=== PATIENT | male | born 1995 | race Two or more races ===

== ENCOUNTER 2020-03-15 12:56 | Emergency (ER) | payer BC ==
[2020-03-15] MEDS ORDERED: Ondansetron 4 MG/2 ML SDV IVPUSH ONE (13:16)
[2020-03-15] MEDS ORDERED: Sodium Chloride 0.9% 10 ML Syringe FLUSH PRN (13:17)
[2020-03-15] MEDS ORDERED: Sodium Chloride 0.9% 1,000 ML IV SCH (13:30)
[2020-03-15] MEDS ORDERED: Alum Hydrox/Mag Hydrox/Simeth 30 ML, Lidocaine 2% 15 ML PO ONE ×2 (13:34)
--- NOTE | 2020-03-15 13:37 | EDM.PDOC ---
ED HPI GENERAL MEDICAL PROBLEM - General Chief Complaint: Gastrointestinal Problem Stated Complaint: COUGH/VOMITING/CHILLS Time Seen by Provider: 03/15/20 13:11 Source of Information: Reports: Patient, RN Notes Reviewed History Limitations: Reports: No Limitations - History of Present Illness INITIAL COMMENTS - FREE TEXT/NARRATIVE: Patient is a 25-year-old male who presents to the ED for the evaluation of his cough/vomiting/chills. The patient notes that he has been sick since about Sunday. He notes that he woke up not feeling well. He had a slight cough, and then began having nausea and vomiting. He states he has been vomiting up to about 10 times per day. He is not really been able to keep anything down for food or fluids. He states he has not checked his temperature at home, but he has felt hot and cold. His pulse rate is 119 bpm, temperature is 97.2 F. Respiratory rate of 24. O2 sats 96% on room air, blood pressure is 149/109. He notes that he is not taking any sort of [id number] medications, and states that his vomitus is a very dark bile colored. He has not noticed any sort of blood in his vomitus. He states that he is having no abdomen pain, more of just a burning sensation in his mid abdomen. He patient states that his brother is sick at home as well with some of the same type of symptoms. He also notes that he is a daily drinker, usually drinks about 3 beers and 3 shots of alcohol daily, but he does not feel that he is having any sort of withdrawal type symptoms. He notes he has not had alcohol in the last 3 days. He is quite uncertain about a possible food ingestion. He states that him and his brother did dine together remotely before the symptoms started. He denies any past surgical history so still retains his gallbladder and appendix. He is not taking any regular medications. Patient denies any diarrhea, or any ongoing urinary issues. - Related Data Allergies Allergy/AdvReac Type Severity Reaction Status Date / Time No Known Allergies Allergy Verified 03/15/20 13:09 Home Meds: Home Meds Promethazine [Phenergan] 25 mg PO Q6H PRN #15 tab 03/15/20 [Rx] levoFLOXacin [Levaquin] 500 mg PO DAILY #7 tab 03/15/20 [Rx] Past Medical History HEENT History: Reports: Impaired Vision Neurological History: Reports: Concussion Endocrine/Metabolic History: Reports: Obesity/BMI 30+ - Past Surgical History HEENT Surgical History: Reports: Oral Surgery Social & Family History - Family History Family Medical History: Noncontributory Cardiac: Reports: Hypertension GI: Reports: None : Reports: None OBGYN: Reports: None Musculoskeletal: Reports: None Neurological: Reports: None Psychiatric: Reports: None Endocrine/Metabolic: Reports: Diabetes, type II Oncologic: Reports: Lung - Tobacco Use Tobacco Use Status *Q: Never Tobacco User - Caffeine Use Caffeine Use: Reports: Soda - Alcohol Use Alcohol Use History: Yes Days Per Week of Alcohol Use: 7 Days Per Week of Alcohol Use Comment: 3 beer, 3 shots daily Alcohol Use in Last Twelve Months: Yes Alcohol Use Frequency: Daily - Recreational Drug Use Recreational Drug Use: No ED ROS GENERAL - Review of Systems Review Of Systems: Comprehensive ROS is negative, except as noted in HPI. ED EXAM, GI/ABD - Physical Exam Exam: See Below Exam Limited By: No Limitations General Appearance: Alert, WD/WN, No Apparent Distress Respiratory/Chest: No Respiratory Distress, Lungs Clear, Normal Breath Sounds, No Accessory Muscle Use, Chest Non-Tender Cardiovascular: Normal Peripheral Pulses, No Murmur, No Rub GI/Abdominal Exam: Normal Bowel Sounds, Soft, Non-Tender, No Distention, No Mass Extremities: Normal Inspection, Normal Capillary Refill Neurological: Alert, Oriented, Normal Cognition, No Motor/Sensory Deficits Psychiatric: Normal Affect, Normal Mood Skin Exam: Warm, Dry, Intact, Normal Color, No Rash Course - Vital Signs Last Recorded V/S: Last Vital Signs Temp 98.9 F 03/15/20 17:13 Pulse 99 03/15/20 17:13 Resp 22 H 03/15/20 17:13 BP 145/97 H 03/15/20 17:13 Pulse Ox 95 03/15/20 17:13 Orthostatic Blood Pressure [ 138/97 Standing] Orthostatic Blood Pressure [ 150/105 Sitting] Orthostatic Blood Pressure [ 144/100 Supine] - Orders/Labs/Meds Orders: Active Orders 24 hr Category Date Time Status Peripheral IV Care [RC] . DIRECTED Care 03/15/20 13:17 Active Abdomen Ltd [US] Stat Exams 03/15/20 14:48 Taken CULTURE URINE [RM] Routine Lab 03/15/20 14:20 Received Sodium Chloride 0.9% [Normal Saline] 1,000 ml Med 03/15/20 13:30 Active IV ASDIRECTED Sodium Chloride 0.9% [Saline Flush] Med 03/15/20 13:17 Active 10 ml FLUSH ASDIRECTED PRN Peripheral IV Insertion Adult [OM.PC] Routine Oth 03/15/20 13:17 Ordered Medication Orders Sodium Chloride (Normal Saline) 1,000 mls @ 999 mls/hr IV ASDIRECTED LESLIE Last Admin: 03/15/20 13:37 Dose: 999 mls/hr Documented by: CARMELLA Sodium Chloride (Saline Flush) 10 ml FLUSH ASDIRECTED PRN PRN Reason: Keep Vein Open Last Admin: 03/15/20 13:38 Dose: 10 ml Documented by: CARMELLA Labs: Laboratory Tests 03/15/20 03/15/20 03/15/20 Range/Units 13:35 13:35 14:20 WBC 6.30 (4.23-9.07) K/mm3 RBC 6.09 H (4.63-6.08) M/mm3 Hgb 18.3 H (13.7-17.5) gm/dl Hct 52.6 H (40.1-51.0) % MCV 86.4 (79.0-92.2) fl MCH 30.0 (25.7-32.2) pg MCHC 34.8 (32.2-35.5) g/dl RDW Std Deviation 43.5 (35.1-43.9) fL Plt Count 217 (163-337) K/mm3 MPV 10.5 (9.4-12.3) fl Neutrophils % (Manual) 72 H (40-60) % Band Neutrophils % 2 (0-10) % Lymphocytes % (Manual) 17 L (20-40) % Atypical Lymphs % 0 % Monocytes % (Manual) 8 (2-10) % Eosinophils % (Manual) 0 L (0.8-7.0) % Basophils % (Manual) 1 (0.2-1.2) Platelet Estimate Adequate RBC Morph Comment Normal Sodium 137 (136-145) mEq/L Potassium 3.0 L (3.5-5.1) mEq/L Chloride 98 (98-107) mEq/L Carbon Dioxide 25 (21-32) mEq/L Anion Gap 17.0 H (5-15) BUN 12 (7-18) mg/dL Creatinine 1.1 (0.7-1.3) mg/dL Est Cr Clr Drug Dosing 101.77 mL/min Estimated GFR (MDRD) > 60 (>60) mL/min BUN/Creatinine Ratio 10.9 L (14-18) Glucose 123 H (74-106) mg/dL Calcium 9.0 (8.5-10.1) mg/dL Total Bilirubin 2.0 H (0.2-1.0) mg/dL GGT 347 H (15-85) U/L AST 140 H (15-37) U/L ALT 290 H (16-63) U/L Alkaline Phosphatase 72 (46-116) U/L C-Reactive Protein 3.5 H* (<1.0) mg/dL Total Protein 8.3 H (6.4-8.2) g/dl Albumin 4.2 (3.4-5.0) g/dl Globulin 4.1 gm/dL Albumin/Globulin Ratio 1.0 (1-2) Lipase 95 (73-393) U/L Urine Color [place] H (Yellow) Urine Appearance Clear (Clear) Urine pH 6.0 (5.0-8.0) Ur Specific [place] > or = 1.030 (1.005-1.030) Urine Protein 3+ H (Negative) Urine Glucose (UA) Trace H (Negative) Urine Ketones 1+ H (Negative) Urine Occult Blood Negative (Negative) Urine Nitrite Positive H (Negative) Urine Bilirubin 3+ H (Negative) Urine Urobilinogen >=8.0 H (0.2-1.0) Ur Leukocyte Esterase Negative (Negative) Urine RBC 0-5 (0-5) /hpf Urine WBC Not seen (0-5) /hpf Ur Squamous Epith Cells 0-5 (0-5) /hpf Amorphous Sediment Few H (NOT SEEN) /hpf Urine Bacteria Few (FEW) /hpf Urine Mucus Many H (FEW) /hpf Meds: Medications Generic Name Dose Route Start Last Admin Trade Name Freq PRN Reason Stop Dose Admin Sodium Chloride 1,000 mls @ 999 mls/hr 03/15/20 13:30 03/15/20 13:37 Normal Saline IV 999 mls/hr ASDIRECTED LESLIE Administration Sodium Chloride 10 ml 10/26/20 13:17 03/15/20 13:38 Saline Flush FLUSH 10 ml ASDIRECTED PRN Administration Keep Vein Open Discontinued Medications Generic Name Dose Route Start Last Admin Trade Name Uri PRN Reason Stop Dose Admin Al Hydroxide/Mg Hydroxide 30 0 ml 03/15/20 13:34 03/15/20 13:44 ml/ Lidocaine HCl 15 ml PO 03/15/20 13:35 45 ml ONETIME ONE Administration Sodium Chloride 1,000 mls @ 999 mls/hr 03/15/20 14:56 03/15/20 15:03 Normal Saline IV 03/15/20 15:56 999 mls/hr ONETIME ONE Administration Ondansetron HCl 4 mg 03/15/20 13:16 03/15/20 13:38 Zofran IVPUSH 03/15/20 13:17 4 mg ONETIME ONE Administration Potassium Chloride 40 meq 03/15/20 14:56 03/15/20 15:04 Klor-Con M20 PO 03/15/20 14:57 40 meq ONETIME ONE Administration - Re-Assessments/Exams Free Text/Narrative Re-Assessment/Exam: 03/15/20 13:38 Patient presents to the ED for evaluation of his ongoing symptoms. Although COVID-19 has been known to cause a whole plethora of symptoms. I locally suspect this, I do believe the patient's hot and cold flashes are due to the nausea that he has been having. Patient be given some IV fluids along with nausea medications a GI cocktail and some basic labs for further evaluation. 03/15/20 14:56 Patient's laboratory evaluation demonstrates a white blood cell count within n ormal limits at 6.3, with 72% neutrophils and 2 bands reported. Potassium is mildly low at 3.0, kidney function studies are within normal limits. Total bilirubin is 2.0, GGT 347, AST elevated 140, ALT elevated to 90, normal ALP, elevated CRP at 3.5, and normal lipase at 95. Have ordered gallbladder ultrasound for further evaluation, patient's last meal he states was yesterday. Patient states he is feeling much better. He will also get 40 mEq potassium p.o. and another bag of fluids while we are investigating the gallbladder. 03/15/20 16:52 Gallbladder ultrasound demonstrates no obvious gallbladder abnormalities. There is fatty infiltration of the liver. Elevated liver enzymes might be due to alcoholic hepatitis in nature. Lipase was within normal limits so is not suffering from pancreatitis. We will get him home with some oral antibiotics, and oral nausea meds for management as his urinalysis did show nitrite positive which is suspicious for UTI. Your urine culture has been sent and is pending. We will have him follow-up in a few days time if he is not feeling much better. Departure - Departure Time of Disposition: 16:53 Disposition: Home, Self-Care 01 Condition: Good Clinical Impression: UTI, Urinary tract infectious disease, Hepatitis, alcoholic, acute - Discharge Information *PRESCRIPTION DRUG MONITORING PROGRAM REVIEWED*: No *COPY OF PRESCRIPTION DRUG MONITORING REPORT IN PATIENT JOSSELYN: No Prescriptions: levoFLOXacin [Levaquin] 500 mg PO DAILY #7 tab Promethazine [Phenergan] 25 mg PO Q6H PRN #15 tab PRN Reason: Nausea Instructions: Urinary Tract Infection, Adult, [id number], Alcoholic Hepatitis Referrals: PCP,None [Primary Care Provider] - Forms: ED Department Discharge, ED Return to Work/School Form Additional Instructions: You were evaluated in the ER today for your nausea and vomiting. Your laboratory evaluation does demonstrate that you have some inflammation in your liver, which could be due to alcohol use. Your gallbladder ultrasound demonstrated no abnormalities within your gallbladder. Your urinalysis demonstrated that you do have a UTI in nature and you have been started on antibiotics, please take as prescribed until all of this is gone. The antibiotics can take up to 48 hours to kick in, I recommend that you follow-up in clinic in a few days time if you are not feeling much better. You were given some antinausea medications, please take as directed for nausea every 6 hours as needed. I would recommend that you stick to a clear liquid diet over the next 24 to 48 hours and advance to a bland diet as tolerated. Please use fluid like Powerade/Gatorade, Pedialyte or others until your nausea seems to have improved and you can tolerate foods. Please return to the ER at any time if symptoms change or worsen. Sepsis Event Note (ED) - Evaluation Sepsis Screening Result: Possible Sepsis Risk - Focused Exam Vital Signs: Vital Signs Temp Pulse Resp BP Pulse Ox 03/15/20 17:13 98.9 F 99 22 H 145/97 H 95 03/15/20 15:05 98.9 F 92 22 H 145/97 H 95 03/15/20 13:14 97.2 F 119 H 24 H 149/109 H 96 - My Orders Last 24 Hours: My Active Orders 03/15/20 13:17 Peripheral IV Care [RC] . DIRECTED Sodium Chloride 0.9% [Saline Flush] 10 ml FLUSH ASDIRECTED PRN Peripheral IV Insertion Adult [OM.PC] Routine 03/15/20 13:30 Sodium Chloride 0.9% [Normal Saline] 1,000 ml IV ASDIRECTED 03/15/20 14:20 CULTURE URINE [RM] Routine 03/15/20 14:48 Abdomen Ltd [US] Stat - Assessment/Plan Last 24 Hours: My Active Orders 03/15/20 13:17 Peripheral IV Care [RC] . DIRECTED Sodium Chloride 0.9% [Saline Flush] 10 ml FLUSH ASDIRECTED PRN Peripheral IV Insertion Adult [OM.PC] Routine 03/15/20 13:30 Sodium Chloride 0.9% [Normal Saline] 1,000 ml IV ASDIRECTED 03/15/20 14:20 CULTURE URINE [RM] Routine 03/15/20 14:48 Abdomen Ltd [US] Stat
[2020-03-15] MEDS ORDERED: Sodium Chloride 0.9% 1,000 ML IV ONE (14:56)
[2020-03-15] MEDS ORDERED: Potassium Chloride 20 MEQ Tab.ER PO ONE (14:56)
--- NOTE | 2020-03-18 14:11 | US ---
PROCEDURE INFORMATION: Exam: US Abdomen, Limited; Right Upper Quadrant Exam date and time: 03/15/2020 3:15 PM Age: 25 years old Clinical indication: Abdominal pain; Acute TECHNIQUE: Imaging protocol: US abdomen. Real time ultrasound with image documentation. Limited exam focused on the right upper quadrant. COMPARISON: No relevant prior studies available. FINDINGS: Liver: Fatty infiltration of the liver. No masses. Gallbladder: Normal. No gallstones. There is no gallbladder wall thickening. Common bile duct: Normal. No stones. No dilation. Pancreas: Visualized pancreas is unremarkable. Right kidney: Normal. No mass. No hydronephrosis. IMPRESSION: No acute findings. Thank you for allowing us to participate in the care of your patient. Dictated and Authenticated by: Danyel Caputo DO 03/15/2020 5:33 PM Central Time ([place] & [place]) ALISA
== END 2020-03-15 17:30 | disposition home or self-care (01) ==
LOC: JD.ED 12:56
DX: K70.10 Alcoholic hepatitis without ascites (principal); N39.0 Urinary tract infection, site not specified; E66.9 Obesity, unspecified
CPT/HCPCS: 36415; 76705; 80053; 81001; 82977; 83690; 85007; 85027; 86140; 87086; 96374; 99284; A9270; J2405; J7030

== ENCOUNTER 2021-05-20 09:55 | Emergency (ER) | payer BC ==
--- NOTE | 2021-05-20 10:40 | EDM.PDOC ---
<Tamra Sainz - Last Filed: 05/20/21 12:08> ED HPI GENERAL MEDICAL PROBLEM - General Chief Complaint: Respiratory Problem Stated Complaint: COVID TEST Time Seen by Provider: 05/20/21 10:15 Source of Information: Reports: Patient History Limitations: Reports: No Limitations - History of Present Illness INITIAL COMMENTS - FREE TEXT/NARRATIVE: Mr. May Iglesias is a 26-year-old male who is here to be tested for COVID-19. Several of his roommates recently tested positive. Mr. Iglesias's symptoms started 2 days ago and include a dry, non-productive cough, difficultly breathing when in the outside cold air and slight lightheadedness and fever. He denies headache, dizziness, sinus pain, chest pain, nausea, vomiting and diarrhea. He is able to keep food and water down. Onset Date: 05/18/21 Duration: Day(s): Associated Symptoms: Reports: Cough, Fever/Chills, Shortness of Breath. Denies: Chest Pain, Diaphoresis, Headaches, Loss of Appetite, Malaise, Nausea/Vomiting, Syncope, Weakness Treatments DIRECTOR [employer]ETING: Reports: Other (see below) (Cough drops) - Related Data Allergies Allergy/AdvReac Type Severity Reaction Status Date / Time No Known Allergies Allergy Verified 05/20/21 10:14 Home Meds: Home Meds Promethazine [Phenergan] 25 mg PO Q6H PRN #15 tab 03/15/20 [Rx] levoFLOXacin [Levaquin] 500 mg PO DAILY #7 tab 03/15/20 [Rx] Past Medical History HEENT History: Reports: Impaired Vision Cardiovascular History: Reports: None Respiratory History: Reports: None Gastrointestinal History: Reports: None Genitourinary History: Reports: None Musculoskeletal History: Reports: None Neurological History: Reports: Concussion Psychiatric History: Reports: None Endocrine/Metabolic History: Reports: Obesity/BMI 30+ Hematologic History: Reports: None Immunologic History: Reports: None Oncologic (Cancer) History: Reports: None Dermatologic History: Reports: None - Infectious Disease History Infectious Disease History: Reports: None - Past Surgical History Head Surgeries/Procedures: Reports: None HEENT Surgical History: Reports: Oral Surgery GI Surgical History: Reports: None Social & Family History - Family History Family Medical History: No Pertinent Family History Cardiac: Reports: Hypertension GI: Reports: None : Reports: None OBGYN: Reports: None Musculoskeletal: Reports: None Neurological: Reports: None Psychiatric: Reports: None Endocrine/Metabolic: Reports: Diabetes, type II Oncologic: Reports: Lung - Tobacco Use Tobacco Use Status *Q: Never Tobacco User - Caffeine Use Caffeine Use: Reports: Soda ED ROS GENERAL - Review of Systems Review Of Systems: Comprehensive ROS is negative, except as noted in HPI. Constitutional: Reports: Fever, Chills. Denies: Malaise, Weakness, Fatigue HEENT: Reports: No Symptoms Respiratory: Reports: Shortness of Breath, Cough. Denies: Sputum Cardiovascular: Reports: No Symptoms Endocrine: Reports: No Symptoms GI/Abdominal: Reports: No Symptoms : Reports: No Symptoms Musculoskeletal: Reports: No Symptoms Skin: Reports: No Symptoms Neurological: Reports: No Symptoms Psychiatric: Reports: No Symptoms Hematologic/Lymphatic: Reports: No Symptoms Immunologic: Reports: No Symptoms ED EXAM, GENERAL - Physical Exam Exam Limited By: No Limitations General Appearance: Alert, No Apparent Distress Ears: Normal External Exam, Normal Canal, Hearing Grossly Normal, Normal TMs Nose: Normal Inspection, No Blood Throat/Mouth: Normal Inspection, Other (erythema) Head: Atraumatic, Normocephalic Neck: Normal Inspection, Supple, Lymphadenopathy (L) (mild submandibular tenderness), Lymphadenopathy (R) (mild submandibular tenderness) Respiratory/Chest: No Respiratory Distress, Lungs Clear, Normal Breath Sounds, No Accessory Muscle Use, Chest Non-Tender Cardiovascular: Regular Rate, Rhythm, No JVD Neurological: Alert, Oriented, CN II-XII Intact Psychiatric: Normal Affect, Normal Mood Skin Exam: Warm, Dry, Intact, Normal Color Lymphatic: No Adenopathy Course - Re-Assessments/Exams Free Text/Narrative Re-Assessment/Exam: 05/20/21 11:52 Positive for Influenza A. Negative for Influenza B and COVID-19. Mr. Iglesias reports not being vaccinated for COVID nor influenza. Per the current CDC guidelines, the recommended quarantine period for anyone in the general public who is exposed to COVID-19 and unvaccinated, quarantine for 5 days followed by strict appropriate use of a properly fitting mask for an additional 5 days. Free Text/Narrative Re-Assessment/Exam: 05/20/21 12:08 Due to symptoms starting >48hours ago, Tamaflu is not appropriate at this time. Departure - Departure Time of Disposition: 12:00 Disposition: Home, Self-Care 01 Condition: Good Clinical Impression: Influenza A - Discharge Information Instructions: Influenza, Adult, [id number] Referrals: PCP,None [Primary Care Provider] - Forms: ED Department Discharge, ED Return to Work/School Form Additional Instructions: You have been diagnosed with Influenza A. Continue to maintain adequate hydration and nutrition. Due to your roommate's COVID positive statues, and your unvaccinated statues, the CDC currently recommends a quarantine period for anyone in the general public who is exposed to COVID-19 and unvaccinated, quarantine for 5 days followed by strict appropriate use of a properly fitting mask for an additional 5 days. Sepsis Event Note (ED) - Evaluation Sepsis Screening Result: No Definite Risk <Dann Garcia - Last Filed: 05/20/21 12:12> ED EXAM, GENERAL - Physical Exam Exam: See Below Eye Exam: Bilateral Eye: Normal Inspection Extremities: Normal Inspection, Normal Range of Motion, Non-Tender, No Pedal Edema Course - Vital Signs Last Recorded V/S: Last Vital Signs Temp 36.4 C 05/20/21 10:12 Pulse 92 05/20/21 10:12 Resp 20 05/20/21 10:12 BP 153/98 H 05/20/21 10:12 Pulse Ox 95 05/20/21 10:12 - Orders/Labs/Meds Labs: Laboratory Tests 05/20/21 Range/Units 10:10 Influenza Type A RNA Positive H (NEGATIVE) Influenza Type B RNA Negative (NEGATIVE) SARS-CoV-2 RNA (ABELARDO) Negative (NEGATIVE) - Re-Assessments/Exams Free Text/Narrative Re-Assessment/Exam: 05/20/21 12:11 I agree with physician family and divorce legal assistant student Tamra Sainz in regards to examination treatment and findings on this patient who is influenza type A. I agree with discharge summary. Conservative treatment is in order since he is at least 72 hours into his current illness. Departure - Discharge Information *PRESCRIPTION DRUG MONITORING PROGRAM REVIEWED*: Not Applicable *COPY OF PRESCRIPTION DRUG MONITORING REPORT IN PATIENT JOSSELYN: Not Applicable Sepsis Event Note (ED) - Focused Exam Vital Signs: Vital Signs Temp Pulse Resp BP Pulse Ox 05/20/21 10:12 36.4 C 92 20 153/98 H 95
[2021-05-20 11:23] LABS: CORONAVIRUS COVID-19 NAA NEGATIVE (NEGATIVE)
== END 2021-05-20 12:20 | disposition home or self-care (01) ==
LOC: JD.ED 09:55
DX: J10.1 Influenza due to other identified influenza virus with other respiratory manifestations (principal); E66.9 Obesity, unspecified; Z68.30 Body mass index [BMI] 30.0-30.9, adult; Z20.822 Contact with and (suspected) exposure to COVID-19
CPT/HCPCS: 0240U; 99283

== ENCOUNTER 2022-07-25 07:09 | Emergency (ER) | payer BC | END 2022-07-25 08:41 | disposition home or self-care (01) | LOC: JD.ED 07:09 | DX: S83.91XA Sprain of unspecified site of right knee, initial encounter (principal); E66.9 Obesity, unspecified; Z68.31 Body mass index [BMI] 31.0-31.9, adult; X50.1XXA Overexertion from prolonged static or awkward postures, initial encounter | CPT/HCPCS: 73564-26-RT; 73564-RT; 99282; 99283 ==